=== PATIENT | male | born 1930 | race Caucasian/White ===

== ENCOUNTER 2016-11-01 12:04 | Outpatient (RCR) | payer OTHER | END 2016-11-29 | disposition home or self-care (01) | LOC: PTY 12:04 | PROVIDERS: ATTEND Internal Medicine | DX: M51.36 Other intervertebral disc degeneration, lumbar region (principal) | CPT/HCPCS: 97110; 97140; G0283 ==

== ENCOUNTER 2016-11-30 10:50 | Outpatient (RCR) | payer OTHER | END 2016-12-27 | disposition home or self-care (01) | LOC: PTY 10:50 | PROVIDERS: ATTEND Internal Medicine | DX: M51.36 Other intervertebral disc degeneration, lumbar region (principal) | CPT/HCPCS: 97035; 97110; 97140; G0283 ==

== ENCOUNTER 2017-01-09 12:45 | Outpatient (RCR) | payer OTHER | END 2017-01-27 | disposition home or self-care (01) | LOC: PTY 12:45 | PROVIDERS: ATTEND Internal Medicine | DX: M51.36 Other intervertebral disc degeneration, lumbar region (principal) | CPT/HCPCS: 97035; 97110; G0283 ==